=== PATIENT | female | born 1955 | race Caucasian/White ===

== ENCOUNTER 2016-07-19 18:51 | Emergency (ER) | payer OTHER ==
[~2016-07-19] VITALS: Ht 147.3 cm; Wt 96.7 kg
[~2016-07-19 18:51] MED LIST: ALBUTEROL17 GM IH; ALLEGRA ALLERG180 MG PO; ALLEGRA180 MG PO; AMBIEN CR12.5 MG PO; AMBIEN10 MG PO; ANTIVERT25 MG PO; ATELVIA35 MG PO; Ambien PO; BIOTIN 5000MCG PO; CO Q-1010 MG PO; CRESTOR5 MG PO; Colace PO; Coumadin,Jantoven PO; Ecotrin PO; FLEXERIL10 MG PO; FLONASE ALLERG9.9 ML BOTH NARES; FLONASE16 GM NS; FOLIC ACID1 MG PO; Feosol PO; Flexeril PO; Flonase BOTH NARES; HUMIRA40 MG/0.8 SC; LASIX40 MG PO; LIDODERM 5% P1 PATCH TD; Lasix PO; METOPROLOL SUCC25 MG PO; MSIR PO; MSIR15 MG PO; PRILOSEC OTC20 M1 PO; PRILOSEC40 MG PO; Percocet 5/325,Endoc PO; Phenergan PO; SINEQUAN10 MG PO; Senokot S,Pericolace PO; TENORMIN50 MG PO; THERAGRAN1 TABLET PO; TYLENOL ARTHRI650 MG PO; Tenormin PO; Tricor,Triglide PO; Tylenol Extra Streng PO; ULTRAM50 MG PO; VIACTIV CALC1 TABLET PO; VITAMIN D1000 INTUN PO
[2016-07-19 20:24] LABS: HEMATOCRIT 35.3 % (36.0-46.0); MCH 28.3 PG (29.0-34.0); MCHC 32.3 G/DL (30.0-36.0); MCV 87.6 FL (83-99); MEAN PLAT.VOLUME 9.2 uM^3 (9.5-12.4); PLATELET COUNT 301 K/uL (156-360); RBC DIS.WIDTH-CV 14.4 % (11.8-14.6); RBC DIS.WIDTH-SD 45.2 % (39-53); RED BLOOD COUNT 4.03 M/uL (3.80-5.20); WHITE BLOOD COUNT 9.6 K/uL (4.1-10.2)
[2016-07-19 20:35] LABS: CHLORIDE 107 mEq/L (99-109); POTASSIUM 4.3 mEq/L (3.7-5.4); SODIUM 141 mEq/L (136-147)
[2016-07-19 20:36] LABS: GLUCOSE 100 mg/dL (70-99)
[2016-07-19 20:38] LABS: ANION GAP 14 MEQ/L (2-14)
[2016-07-19 20:40] LABS: GFR ESTIMATE (CALCULATED) 40 mL/min/
[2016-07-19 20:41] LABS: UREA NITROGEN (BUN) 24 mg/dL (9-23)
[2016-07-19 20:48] LABS: TROP-I INTERPRETATION NEGATIVE; TROPONIN-I 0.01 ng/mL (0.0-0.30)
[2016-07-19] MEDS ORDERED: PROAIR HFA8.5 GM IH (22:24)
[2016-07-19] MEDS ORDERED: HYCODAN SYRUP480 ML PO (22:24)
[2016-07-19 22:44] VITALS: BP 145/82
== END 2016-07-19 22:51 | disposition home or self-care (01) ==
LOC: EME 18:51
DX: J06.9 Acute upper respiratory infection, unspecified (principal); R05 Cough; Z91.14 Patient's other noncompliance with medication regimen; Z88.2 Allergy status to sulfonamides; Z88.6 Allergy status to analgesic agent; Z88.8 Allergy status to other drugs, medicaments and biological substances; Z88.0 Allergy status to penicillin
CPT/HCPCS: 71020; 71250; 80048; 84484; 85027; 93005; 99281; 99284